=== PATIENT | female | born 1975 | race Caucasian/White ===

== ENCOUNTER 2022-05-31 14:58 | Emergency (ER) | payer BC, SELFPAY ==
[2022-05-31] VITALS (10 sets, daily range): BP systolic 133–152; BP diastolic 79–84; PULSE 95–105; RESP 16; TEMP 37; O2SAT 97–100; BMI 37.5
--- NOTE | 2022-05-31 15:30 | CRLHL7_ITS ---
For Patients: As a result of the Cures Act, medical imaging exams and procedure reports are released immediately into your electronic medical record. You may view this report before your referring provider. If you have questions, please contact your health care provider. INDICATION: Chest pain. TECHNIQUE: Chest 2 views. COMPARISON: 05/27/2021. FINDINGS: Cardiovascular and mediastinum: Heart size and vasculature are normal in caliber and appearance. Lungs and pleural spaces: Lungs are clear. No sign of infiltrate or mass. No sign of pleural effusion. No pneumothorax. Bones and soft tissues: No significant findings. IMPRESSION: No acute findings and no significant changes from the prior exam. Dictated by Rd Christine MD @ 05/31/2022 3:58:56 PM (Electronically Signed)
--- NOTE | 2022-05-31 15:35 | ED.GENADULT ---
HPI - General Adult General Chief complaint: Chest Pain Stated complaint: Chest pain, lightheaded and dizzy Time Seen by Provider: 05/31/22 15:00 Source: patient and family Mode of arrival: ambulatory Limitations: no limitations History of Present Illness HPI narrative: 47-year-old female with no significant prior cardiac history presents to the emergency department for evaluation of chest pain that started approximately 10:00 a.m. this morning. It started as a dull ache in the very left lateral chest radiating a bit into the left throat area. It has been persistent, not worsening, not waxing and waning, constant. Achy in nature. She initially thought that this could be a sign of an allergic reaction she reports multiple allergies. She tried taking some Benadryl with no significant improvement in her symptoms. There was no shortness of breath, no palpitations. She also reports what sounds like a history of a previous arrhythmia but some teen years ago when she was . It sounds like she was put on some atenolol and had side effects from it and later discontinued. She is no longer on medication for this. She describes episodes where if she avoids artificial sugars and also performs what sound like vagal maneuvers that she can stop her episodes. The story sounds consistent with a possible history of SVT but when I bring this up, she cannot confirm the diagnosis. Nonetheless she has not had any significant symptoms with it recently. She knows of no family history of significant early coronary artery disease. She herself has never had a stress test. It sounds like she did have an echo but more than 15 years ago may have shown enlarged heart at the time but again she was at that time. It does not sound as though there was an indication to perform follow-up studies. She has not tried any other treatments to help with her symptoms. No GI symptoms, nausea, vomiting. She also endorses some lightheadedness style dizziness. She denies any vertigo or neurological changes. She feels like her left hand is colder than her right hand but is uncertain what to relate this to. There is no weakness in the hand or arms. No other neurological changes like vertigo, headache, vision changes, speech changes, confusion, lower extremity weakness or feeling off balance. No recent injury or trauma. She did have her levothyroxine dose increased 2 days ago. Past medical history she states is notable for wheat allergy, hypothyroidism and celiac disease. She reports that her only home medication is levothyroxine and vitamin-D. She says she also has an inhaler sounds like albuterol but has not recently used. Socially, she denies any alcohol, illicit drug or tobacco use. No pertinent travel. Family history sounds like father also has a history of possibly SVT by description but no premature coronary artery disease. ROS notable for the hand, chest symptoms as above on also the dizziness which is a lightheadedness type of dizziness. Otherwise denies times 12 systems Related Data Home Medications Medication Instructions Recorded Confirmed epinephrine 0.3 mg/0.3 mL IM ONCE 05/31/22 injection, auto-injector ergocalciferol (vitamin D2) 1,250 1,250 mcg PO 2XW 05/31/22 05/31/22 mcg (50,000 unit) capsule levothyroxine 125 mcg tablet 125 mcg PO DAILY 05/31/22 05/31/22 (Synthroid) Allergies Allergy/AdvReac Type Severity Reaction Status Date / Time metoclopramide [From Reglan] Allergy Severe Anaphylaxis Verified 05/31/22 15:15 Penicillins Allergy Severe other Verified 05/31/22 15:15 wheat Allergy Severe Anaphylaxis Verified 05/31/22 15:15 morphine Allergy Intermediate edema Verified 05/31/22 15:15 atenolol Allergy Unknown Verified 05/31/22 15:15 [facility] Social History Smoking Status: Never smoker How often do you have a drink containing alcohol: never How often do you have six or more drinks on one occasion: Never AUDIT-C Alcohol total score: 0 Non-prescribed substance use: denies use Exam Const: Vital Signs, click to edit/add: Vital Signs - 24 hr 05/31/22 15:03 05/31/22 15:16 05/31/22 15:18 Temperature 98.6 F Pulse Rate 96 96 Pulse Rate [Pulse Oximeter] 105 H Respiratory Rate 16 Blood Pressure 152/84 H Blood Pressure [Ri ght Upper Arm] 152/84 H Pulse Oximetry 97 98 98 Oxygen Delivery Me thod Room Air 05/31/22 15:31 05/31/22 15:45 05/31/22 16:00 Temperature Pulse Rate 102 H 99 95 Pulse Rate [Pulse Oximeter] Respiratory Rate Blood Pressure Blood Pressure [[facility] Upper Arm] Pulse Oximetry 97 98 97 Oxygen Delivery Me thod 05/31/22 16:01 Temperature Pulse Rate 101 H Pulse Rate [Pulse Oximeter] Respiratory Rate Blood Pressure 133/79 Blood Pressure [Ri t Upper Arm] Pulse Oximetry 98 Oxygen Delivery Me thod Documenting provider has reviewed patient's vital signs: yes Common normals: no apparent distress and alert General appearance: cooperative and well kempt Orientation/consciousness: Yes awake HENMT: Common normals: normocephalic Head and scalp: normocephalic Face and sinus: normal facial exam Mouth: oral and palatal mucosa normal Throat: posterior oropharynx normal Eye: Common normals: PERRL, EOMs intact bilaterally, conjunctivae normal, no scleral icterus and normal visual galvez by confrontation General eye: normal appearance of both eyes Conjunctiva: conjunctiva(e) normal Pupil: PERRL Neck & C-Spine: Common normals: full ROM and no lymphadenopathy Resp: Common normals: normal respiratory effort, no use of accessory muscles and clear to auscultation bilaterally Effort & inspection: able to speak in complete sentences Auscultation: clear to auscultation bilaterally Cardio: Common normals: regular rate, regular rhythm, S1 normal heart sound, S2 normal heart sound, no murmurs and peripheral pulses 2+ throughout Rate: regular rate Rhythm: regular rhythm Heart sounds: S1 normal and S2 normal Peripheral pulses: pulses 2+ throughout GI: Common normals: Normal to inspection, nondistended, normoactive bowel sounds present, soft to palpation, non-tender, no hepatosplenomegaly and no masses Palpation: soft and no hepatosplenomegaly Extremity: Common normals: no pedal edema Neuro: Sensorium/orientation: awake and alert Coordination/balance: tandem gait normal and does not sway with eyes open Speech: speech normal Gait (neuro): normal gait Motor exam: strength 5/5 throughout, no tremor noted and no movement abnormalities noted Coordination: Romberg test normal, tandem gait normal and does not sway with eyes open Psych: Appearance: grossly normal and well kempt Attitude: calm Activity/motor behavior: appropriate eye contact Mood and affect: euthymic mood Insight: insight good Judgement: judgment good Skin: Common normals: no rashes or lesions noted General skin exam: no rashes or lesions noted Course Vital Signs Vital signs: Initial Vital Signs Temperature 98.6 F 05/31/22 15:03 Temperature Source Temporal Artery Scan 05/31/22 15:03 Pulse Rate 105 H 05/31/22 15:03 Pulse Rhythm Regular 05/31/22 15:03 Pulse Strength 3+ Normal 05/31/22 15:03 Respiratory Rate 16 05/31/22 15:03 Blood Pressure 152/84 H 05/31/22 15:03 Blood Pressure Mean 106 05/31/22 15:03 Blood Pressure Position Semi-Fowlers 05/31/22 15:03 Pulse Oximetry 97 05/31/22 15:03 Oxygen Delivery Method Room Air 05/31/22 15:03 Vital Signs Temperature 98.6 F 05/31/22 15:03 Pulse Rate 105 H 05/31/22 15:03 Respiratory Rate 16 05/31/22 15:03 Blood Pressure 152/84 H 05/31/22 15:03 Pulse Oximetry 97 05/31/22 15:03 Oxygen Delivery Method Room Air 05/31/22 15:03 Temperature 98.6 F 05/31/22 15:03 Pulse Rate 101 H 05/31/22 16:01 Respiratory Rate 16 05/31/22 15:03 Blood Pressure 133/79 05/31/22 16:01 Pulse Oximetry 98 05/31/22 16:01 Oxygen Delivery Method Room Air 05/31/22 15:03 Medical Decision Making MDM Narrative Medical decision making narrative: My differential diagnosis. Was mildly tachycardic check-in. Would recommend chest x-ray, EKG, CBC, troponins and D-dimer. She declines swabs for COVID and influenza. No treatments for now, await findings. Update: Patient continues to have some mild discomfort, not severe. Vitals have stabilized. All labs, x-ray and EKG are reassuring. Offered Tylenol and/or ibuprofen, she declines stating that she can take these at home. I recommend her doing a trial of this. Discussed differential diagnosis including viral infections, possible side effects of her new higher dose of Synthroid. If she still symptomatic in a few weeks, she should talk to her primary care provider about rechecking her labs to determine if this is the proper dose for her. Alarm symptoms reviewed. Follow up with primary care provider if symptoms persist more than the next couple of days Lab Data Lab results reviewed: Yes I reviewed the patient's lab results Lab results narrative: All reassuring. Labs: Lab Results 05/31/22 Range/Units 15:51 WBC 8.49 (4.50-11.00) K/uL RBC 4.83 (4.00-5.20) m/uL Hgb 13.8 (12.0-16.0) gm/dL Hct 40.8 (33.0-51.0) % MCV 85 (80-100) fL MCH 29 (26-34) pg MCHC 34 (32-36) gm/dL RDW Coeff of Vinay 13.5 (11.5-15.5) % Plt Count 291 (140-440) K/uL Neut % (Auto) 74.7 H (42.0-72.0) % Lymph % (Auto) 17.0 L (20-44) % Hopkins % (Auto) 5.3 (0.0-11.0) % Eos % (Auto) 1.5 (0.0-7.0) % Baso % (Auto) 0.2 (0.0-3.0) % Neut # (Auto) 6.30 (1.7-7.0) K/uL Lymph # (Auto) 1.40 (0.90-2.90) K/uL Hopkins # (Auto) 0.40 (0.00-0.90) K/UL Eos # (Auto) 0.13 (0.00-0.50) K/uL Baso # (Auto) 0.02 (0.00-0.30) K/uL D-Dimer Quant (PE/DVT) < 0.27 (0.00-0.50) ug/ml Sodium 139 (135-149) mmol/L Potassium 4.2 (3.6-5.1) mmol/L Chloride 106 (96-114) mmol/L Carbon Dioxide 26 (20-32) mmol/L BUN 13 (5-24) mg/dL Creatinine 0.8 (0.5-1.5) mg/dL Estimated Creat Clear 77.39 Estimated GFR 91 ml/min Glucose 102 (60-115) mg/dL Calcium 9.5 (8.4-10.6) mg/dL Troponin I < 0.01 L (0.01-0.04) ng/mL C-Reactive Protein 0.6 (0.5-1.0) mg/dL NT-Pro-B Natriuret Pep 61 pg/mL POC Troponin I 0.00 L (0.01-0.04) ng/ml Imaging Data Chest x-ray: Attestation: I have reviewed the pertinent imaging results. My impression: Normal chest x-ray. Radiologist's impression: IMPRESSION: No acute findings and no significant changes from the prior exam. ECG Data Attestation: I personally reviewed and interpreted this ECG as follows: Prior ECG tracings: not available for review Interpretation: Normal sinus rhythm, rate of 96. Normal axis. No significant ST or T-wave abnormalities. Good R-wave progression overall. Discharge Plan Discharge Clinical Impression: Anterior chest wall pain Patient Disposition: Home w/ Parent or Adult Condition: Stable Instructions: Chest Pain (DC) Additional Instructions: Thankfully, there are no signs of any dangerous reasons for your chest pain today. As we discussed, this could be from a viral infection, something musculoskeletal or your body adjusting to the new dose of thyroid medicine. If you are still noticing a high heart rate after 4 weeks, I would ask your primary care provider to repeat your labs and potentially lower your dose. Most of the time, your body will naturally adjust with no complications. There are no signs of dangerous heart rhythm today. Your blood pressure has improved with simple rest. Your chest x-ray looks great. The blood work does not reveal any damage to the heart muscle or any signs of heart strain. Kidney function, electrolytes and inflammatory markers are all also normal. We also did a blood test to check for potential blood clots and this is also negative. This is very reassuring. I think that it is safe for you to use Tylenol and/or ibuprofen for your pain. If your symptoms persist, I would follow-up with primary care doctor. Any severe symptoms, please come back to the emergency department. Activity Level: No Restrictions Discharge Diet: Regular Prescriptions: No Action levothyroxine [Synthroid] 125 mcg tablet 125 mcg PO DAILY ergocalciferol (vitamin D2) 1,250 mcg (50,000 unit) capsule 1,250 mcg PO 2XW epinephrine 0.3 mg/0.3 mL auto-injector IM ONCE Follow Up/Referrals: Larisa Velarde PA-C [Primary Care Provider] - Stand Alone Forms: [employer] Info Instructions
--- NOTE | 2022-05-31 15:41 | ED.NURSE ---
Pt declined to be swabbed for covid/flu, stating, I don't have those. Mechanical Integrity Specialist explained to pt that MD ordered these tests due to the symptoms that the pt complained of; pt again declined to be tested for covid/flu. MD notified.
[2022-05-31 15:59] LABS: Basophils Absolute Auto 0.02 K/uL (0.00-0.30); Basophils Percent Auto 0.2 % (0.0-3.0); Eosinophils Absolute Auto 0.13 K/uL (0.00-0.50); Eosinophils Percent Auto 1.5 % (0.0-7.0); Hematocrit 40.8 % (33.0-51.0); Hemoglobin* 13.8 gm/dL (12.0-16.0); Immature Granulocytes Abs Auto 0.11 K/uL (0.00-0.30); Immature Granulocytes Pct Auto 1.3 %; Mean Corpuscular HGB Conc 34 gm/dL (32-36); Mean Corpuscular Hemoglobin 29 pg (26-34); Mean Corpuscular Volume 85 fL (80-100); Monocytes Percent Auto 5.3 % (0.0-11.0); Neutrophils Percent Auto 74.7 % (42.0-72.0); Platelet Count* 291 K/uL (140-440); RDW Coefficient of Variation % 13.5 % (11.5-15.5); Red Blood Count 4.83 m/uL (4.00-5.20); White Blood Count* 8.49 K/uL (4.50-11.00)
[2022-05-31 16:05] LABS: Slide Review Reflex No
[2022-05-31 16:12] LABS: Chloride* 106 mmol/L (96-114); Potassium* 4.2 mmol/L (3.6-5.1); Sodium* 139 mmol/L (135-149)
[2022-05-31 16:15] LABS: Blood Urea Nitrogen* 13 mg/dL (5-24); Carbon Dioxide* 26 mmol/L (20-32); Creatinine* 0.8 mg/dL (0.5-1.5); Est. Creatinine Clearance* 77.39; Estimated Glomerular Filt Rate 91 ml/min; Glucose* 102 mg/dL (60-115)
[2022-05-31 16:16] LABS: Calcium* 9.5 mg/dL (8.4-10.6)
[2022-05-31 16:17] LABS: D Dimer Quantitative* < 0.27 ug/ml (0.00-0.50)
[2022-05-31 16:18] LABS: C Reactive Protein* 0.6 mg/dL (0.5-1.0)
[2022-05-31 16:25] LABS: NT Pro B Type NatriureticPept* 61 pg/mL
[2022-05-31 16:33] LABS: Troponin I* < 0.01 ng/mL (0.01-0.04)
== END 2022-05-31 16:51 | disposition home or self-care (01) ==
PROVIDERS: Emergency Provider Family Medicine; PCP Physician Assistant Medical
DX: R07.9 Chest pain, unspecified (principal)
CPT/HCPCS: 36415; 71046; 80048; 83880; 84484; 85025; 85379; 86140; 87631; 93005; 99283; 99284

== ENCOUNTER 2023-01-07 09:45 | Emergency (ER) | payer BC, SELFPAY ==
[2023-01-07 09:50] VITALS: BP 114/55; PULSE 79; RESP 18; TEMP 36.4; O2SAT 99; BMI 36.8
--- NOTE | 2023-01-07 10:17 | CRLHL7_ITS ---
For Patients: As a result of the Century Cures Act, medical imaging exams and procedure reports are released immediately into your electronic medical record. You may view this report before your referring provider. If you have questions, please contact your health care provider. INDICATION: Right calf pain, bruise. TECHNIQUE: Ultrasound venous duplex lower right extremity. Compression venous exam was performed using farrell-scale, color Doppler, and spectral Doppler analysis. COMPARISON: None. FINDINGS: Deep veins: Sonographic imaging demonstrates the right common femoral, deep femoral, superficial femoral, popliteal, posterior tibial and the contralateral right common femoral veins to be fully compressible with normal color Doppler blood flow. Superficial veins: Greater saphenous vein is fully compressible. No popliteal cyst. IMPRESSION: Normal right lower extremity venous ultrasound, no sign of deep venous thrombosis. Dictated by Ramirez Ha MD @ 01/07/2023 11:05:16 AM (Electronically Signed)
--- NOTE | 2023-01-07 11:16 | ED_ITS ---
HPI - General Adult General Date Seen: 01/07/23 Chief complaint: Extremity Pain/Injury, Lower Stated complaint: blood clot? Time Seen by Provider: 01/07/23 09:47 Source: patient Mode of arrival: ambulatory Limitations: no limitations History of Present Illness HPI narrative: Patient is a 47-year-old female presenting for right leg pain. She states yesterday she notice small bruise on the medial aspect of her right calf. She then today started developing pain in her right calf it posterior right thigh. Denies ever having similar symptoms in the past. Has never had blood clots before. She was concerned she could have developed a blood clot. She is not currently on any blood thinners. Denies fevers, chills, weakness, numbness. No history of peripheral neuropathy. She does state her right foot feel strange. States he does not feel numb does not feel normal. Denies any other concerns at this time Related Data Home Medications Medication Instructions Recorded Confirmed epinephrine 0.3 mg/0.3 mL 0.3 mg IM ONCE PRN 05/31/22 01/07/23 injection, auto-injector ergocalciferol (vitamin D2) 1,250 1,250 mcg PO 2XW 05/31/22 01/07/23 mcg (50,000 unit) capsule levothyroxine 125 mcg tablet 125 mcg PO DAILY 05/31/22 12/16/22 (Synthroid) ipratropium 0.5 mg-albuterol 3 mg 3 ml inhalation QID 01/07/23 01/07/23 (2.5 mg base)/3 mL nebulization soln levothyroxine 137 mcg tablet 137 mcg PO DAILY 01/07/23 01/07/23 (Synthroid) prednisolone sodium phosphate 15 mg PO 01/07/23 mg/5 mL (3 mg/mL) oral solution Allergies Allergy/AdvReac Type Severity Reaction Status Date / Time metoclopramide [From Reglan] Allergy Severe Anaphylaxis Verified 01/07/23 09:58 Penicillins Allergy Severe other Verified 01/07/23 09:58 wheat Allergy Severe Anaphylaxis Verified 01/07/23 09:58 morphine Allergy Intermediate edema Verified 01/07/23 09:58 atenolol Allergy Unknown Verified 01/07/23 09:58 latex Allergy Intermediate extreme Uncoded 01/07/23 09:58 rash, hands swelling dust Allergy Mild sneeze, Uncoded 01/07/23 09:58 runny nose molds Allergy Mild sneeze, Uncoded 01/07/23 09:58 runny nose Review of Systems Status of ROS: Reports: 10 or more systems reviewed and unremarkable except as noted in History and below [facility] Social History Smoking Status: Never smoker How often do you have a drink containing alcohol: never How often do you have six or more drinks on one occasion: Never AUDIT-C Alcohol total score: 0 Non-prescribed substance use: denies use Exam Narrative: Exam Narrative: Const: Well-nourished, Well-developed, in mild distress Eyes: PERRL, no conjunctival injection, and symmetrical lids HENT: Atraumatic external nose and ears. Moist mucous membranes. Neck: Symmetric, trachea midline, No thyromegaly. CVS: RRR, No murmurs or gallops. Peripheral pulses 2+ and equal in all extremities RESP: Unlabored respiratory effort. Clear to auscultation bilaterally. GI: Nontender/Nondistended, No rebound or guarding. MSK:Extremities w/o deformity, Normal Active ROM. No tenderness noted to the calf or posterior thigh Skin: Warm, Dry. Small 1 cm sized bruise to the medial right thigh Neuro: Normal Muscle tone, No focal neurological deficits. Psych: Awake, Alert, & Oriented x3. Appropriate mood and affect. Const: Vital Signs, click to edit/add: Vital Signs - 24 hr 01/07/23 09:50 Temperature 97.5 F L Pulse Rate [Pulse Oximeter] 79 Respiratory Rate 18 Blood Pressure [Ri ght Upper Arm] 114/55 L Pulse Oximetry 99 Oxygen Delivery Me thod Room Air Course Vital Signs Vital signs: Initial Vital Signs Temperature 97.5 F L 01/07/23 09:50 Temperature Source Temporal Artery Scan 01/07/23 09:50 Pulse Rate 79 01/07/23 09:50 Respiratory Rate 18 01/07/23 09:50 Blood Pressure 114/55 L 01/07/23 09:50 Blood Pressure Mean 74 01/07/23 09:50 Blood Pressure Position Sitting 01/07/23 09:50 Pulse Oximetry 99 01/07/23 09:50 Oxygen Delivery Method Room Air 01/07/23 09:50 Vital Signs Temperature 97.5 F L 01/07/23 09:50 Pulse Rate 79 01/07/23 09:50 Respiratory Rate 18 01/07/23 09:50 Blood Pressure 114/55 L 01/07/23 09:50 Pulse Oximetry 99 01/07/23 09:50 Oxygen Delivery Method Room Air 01/07/23 09:50 Temperature 97.5 F L 01/07/23 09:50 Pulse Rate 79 01/07/23 09:50 Respiratory Rate 18 01/07/23 09:50 Blood Pressure 114/55 L 01/07/23 09:50 Pulse Oximetry 99 01/07/23 09:50 Oxygen Delivery Method Room Air 01/07/23 09:50 Medical Decision Making MDM Narrative Medical decision making narrative: Patient is a 47-year-old female presenting for right leg pain. Symptoms started yesterday got worse today. She does have a very small contusion appearing area. We will do an ultrasound to make sure is not a blood clot considering there is pain in the calf and posterior thigh. This did return showing no acute abnormalities. She states she has not remember hitting her leg on anything so does not know what the bruises from. Denies any other pain. She does state her right foot does not feel normal but it is not painful. She is able move her toes without issue. Normal sensation in the foot. At this time I cannot definitively say what is causing the pain but it is not a blood clot. She will be discharged home again follow-up with her primary care provider symptoms are not improving. She agrees with this plan Imaging Data Right lower extremity DVT ultrasound: Radiologist's impression: INDICATION: Right calf pain, bruise. TECHNIQUE: Ultrasound venous duplex lower right extremity. Compression venous exam was performed using farrell-scale, color Doppler, and spectral Doppler analysis. COMPARISON: None. FINDINGS: Deep veins: Sonographic imaging demonstrates the right common femoral, deep femoral, superficial femoral, popliteal, posterior tibial and the contralateral right common femoral veins to be fully compressible with normal color Doppler blood flow. Superficial veins: Greater saphenous vein is fully compressible. No popliteal cyst. IMPRESSION: Normal right lower extremity venous ultrasound, no sign of deep venous thrombosis. Dictated by Ramirez Ha MD @ 01/07/2023 11:05:16 AM Discharge Plan Discharge Clinical Impression: Leg pain, right Patient Disposition: Home, Self-Care Condition: Stable Instructions: Leg Pain (ED) Additional Instructions: Ultrasound shows no signs of a blood clot. Unsure what is causing your symptoms at this time but if they continue you can follow-up with the primary care provider. Prescriptions: No Action levothyroxine [Synthroid] 125 mcg tablet 125 mcg PO DAILY ergocalciferol (vitamin D2) 1,250 mcg (50,000 unit) capsule 1,250 mcg PO 2XW epinephrine 0.3 mg/0.3 mL auto-injector 0.3 mg IM ONCE PRN levothyroxine [Synthroid] 137 mcg tablet 137 mcg PO DAILY ipratropium-albuterol 0.5 mg-3 mg(2.5 mg base)/3 mL solution for nebulization 3 ml INHALATION QID prednisolone sodium phosphate 15 mg/5 mL (3 mg/mL) solution PO Follow Up/Referrals: Larisa Velarde PA-C [Primary Care Provider] - Stand Alone Forms: [employer] Info Instructions
== END 2023-01-07 11:36 | disposition home or self-care (01) ==
PROVIDERS: Emergency Provider Student in an Organized Health Care Education/Training Program; PCP Physician Assistant Medical
DX: M79.604 Pain in right leg (principal)
CPT/HCPCS: 93971; 99283

== ENCOUNTER 2023-11-12 15:01 | Outpatient (CLI) | payer BC, SELFPAY | END 2023-11-12 15:02 | disposition home or self-care (01) | LOC: AMB 11-14 10:42 | PROVIDERS: PCP Physician Assistant Medical; Visit Provider Emergency Medicine | DX: R07.89 Other chest pain (principal) | CPT/HCPCS: A0425; A0427 ==

== ENCOUNTER 2023-11-12 15:34 | Emergency (ER) | payer BC, SELFPAY ==
[2023-11-12 15:40] VITALS: BP 137/92; PULSE 94; RESP 18; TEMP 36.9; O2SAT 98; BMI 38.6
--- NOTE | 2023-11-12 16:03 | CRLHL7_ITS ---
For Patients: As a result of the Cures Act, medical imaging exams and procedure reports are released immediately into your electronic medical record. You may view this report before your referring provider. If you have questions, please contact your health care provider. INDICATION: : CHEST PAIN COMPARISON: Chest radiograph on December 16, 2022 and multiple prior exams TECHNIQUE: Two view(s) of the chest FINDINGS: The cardiomediastinal silhouette and pulmonary vasculature are within normal limits in appearance. There is no focal airspace consolidation, pleural effusion, or pneumothorax. No displaced fractures. IMPRESSION: No acute cardiopulmonary process. Dictated by Juan Luis Gomez MD @ 11/12/2023 5:48:11 PM (Electronically Signed)
--- NOTE | 2023-11-12 16:11 | ED.CHESTPAIN ---
HPI - Chest Pain General Date Seen: 11/12/23 Chief Complaint: Chest Pain Stated Complaint: Anaphylaxis Time Seen by Provider: 11/12/23 15:47 Source: patient Mode of arrival: EMS Limitations: no limitations History of Present Illness HPI narrative: Patient is a 48-year-old female presenting to the emergency department for sharp chest pain and shaking. She states roughly starting about noon today she started to shake uncontrollably and it was pretty consistent up until EMS arrived. She was also having intermittent episodes of sharp chest pain radiating up to her left side of her neck and left shoulder. Denies symptoms like this before. She is given 50 mg of Benadryl by EMS. Is currently having very mild doll chest discomfort but states is much improved. No longer feeling lightheaded. States she feels her legs are weak and hard to walk. Denies fevers, chills, shortness of breath, headache, dizziness, abdominal pain, nausea, diarrhea, constipation. Does states she started using the metronidazole gel last night was observed as causing her symptoms. Considering was long symptoms were occurring she called the triage nurse who referred her to the emergency department. States she also feels like her hands have a tingling sensation. She is no longer shaking now but states ?I feel like I am shaking inside.? Patient believes she is having and flexes reaction to metronidazole. Does not have a rash Related Data Home Medications ?Medication ?Instructions ?Recorded ?Confirmed epinephrine 0.3 mg/0.3 mL 0.3 mg IM ONCE PRN 05/31/22 01/07/23 injection, auto-injector ergocalciferol (vitamin D2) 1,250 1,250 mcg PO 2XW 05/31/22 01/07/23 mcg (50,000 unit) capsule levothyroxine 125 mcg tablet 125 mcg PO DAILY 05/31/22 12/16/22 (Synthroid) ipratropium 0.5 mg-albuterol 3 mg 3 ml inhalation QID 01/07/23 01/07/23 (2.5 mg base)/3 mL nebulization soln levothyroxine 137 mcg tablet 137 mcg PO DAILY 01/07/23 01/07/23 (Synthroid) prednisolone sodium phosphate 15 mg PO 01/07/23 mg/5 mL (3 mg/mL) oral solution Previous Rx's ?Medication ?Instructions ?Recorded prednisone 20 mg tablet 40 mg (2 x 20 mg) PO DAILY #8 tabs 11/12/23 Allergies Allergy/AdvReac Type Severity Reaction Status Date / Time metoclopramide [From Reglan] Allergy Severe Anaphylaxis Verified 01/07/23 09:58 Penicillins Allergy Severe other Verified 01/07/23 09:58 wheat Allergy Severe Anaphylaxis Verified 01/07/23 09:58 morphine Allergy Intermediate edema Verified 01/07/23 09:58 atenolol Allergy Unknown Verified 01/07/23 09:58 clindamycin Allergy Redness of Verified 06/30/23 12:03 Skin latex Allergy Intermediate extreme Uncoded 01/07/23 09:58 rash, hands swelling dust Allergy Mild sneeze, Uncoded 01/07/23 09:58 runny nose molds Allergy Mild sneeze, Uncoded 01/07/23 09:58 runny nose Review of Systems Status of ROS Reports: 10 or more systems reviewed and unremarkable except as noted in History and below [facility] Social History Smoking Status: Never smoker Do you use any of these nicotine containing products: None How often do you have a drink containing alcohol: never How often do you have six or more drinks on one occasion: Never AUDIT-C Alcohol total score: 0 Non-prescribed substance use: denies use service: No Exam Narrative Exam Narrative: Const: Well-nourished, Well-developed, in mild distress Eyes: PERRL, no conjunctival injection, and symmetrical lids HENT: Atraumatic external nose and ears. Moist mucous membranes. Neck: Symmetric, trachea midline, No thyromegaly. CVS: RRR, No murmurs or gallops. Peripheral pulses 2+ and equal in all extremities RESP: Unlabored respiratory effort. Clear to auscultation bilaterally. GI: Nontender/Nondistended, No rebound or guarding. MSK:Extremities w/o deformity, Normal Active ROM Skin: Warm, Dry. No rashes or lesions. Neuro: Normal Muscle tone, No focal neurological deficits. Psych: Awake, Alert, & Oriented x3. Appropriate mood and affect. Const Vital Signs, click to edit/add: Vital Signs - 24 hr 11/12/23 15:40 11/12/23 17:14 11/12/23 17:15 Temperature 98.4 F Pulse Rate 99 94 Pulse Rate [Right Pulse Oximeter] 94 Respiratory Rate 18 Blood Pressure Blood Pressure [Right Upper Arm] 137/92 H Pulse Oximetry 98 99 98 Oxygen Delivery Method Room Air 11/12/23 17:35 11/12/23 19:39 Temperature 98.7 F Pulse Rate 94 Pulse Rate [Right Pulse Oximeter] Respiratory Rate Blood Pressure 132/78 Blood Pressure [Right Upper Arm] Pulse Oximetry 98 Oxygen Delivery Method Course Vital Signs Vital signs: Initial Vital Signs Temperature 98.4 F 11/12/23 15:40 Temperature Source Temporal Artery Scan 11/12/23 15:40 Pulse Rate 94 11/12/23 15:40 Respiratory Rate 18 11/12/23 15:40 Blood Pressure 137/92 H 11/12/23 15:40 Blood Pressure Mean 107 H 11/12/23 15:40 Blood Pressure Position Sitting 11/12/23 15:40 Pulse Oximetry 98 11/12/23 15:40 Oxygen Delivery Method Room Air 11/12/23 15:40 Vital Signs Temperature 98.4 F 11/12/23 15:40 Pulse Rate 94 11/12/23 15:40 Respiratory Rate 18 11/12/23 15:40 Blood Pressure 137/92 H 11/12/23 15:40 Pulse Oximetry 98 11/12/23 15:40 Oxygen Delivery Method Room Air 11/12/23 15:40 Temperature 98.4 F 11/12/23 15:40 Pulse Rate 94 11/12/23 17:35 Respiratory Rate 18 11/12/23 15:40 Blood Pressure 137/92 H 11/12/23 15:40 Pulse Oximetry 98 11/12/23 17:35 Oxygen Delivery Method Room Air 11/12/23 15:40 Medications Administered Medications: Discontinued Medications Generic Name Dose Route Start Last Admin Trade Name Freq PRN Reason Stop Dose Admin Cetirizine HCl 10 mg 11/12/23 17:22 11/12/23 18:08 Cetirizine Hcl 10 Mg Tablet PO 11/12/23 17:23 Not Given ONCE ONE Diphenhydramine HCl 25 mg 11/12/23 18:05 11/12/23 18:09 Diphenhydramine 50 Mg/Ml Inj IVP 11/12/23 18:06 25 mg ONCE ONE Administration Famotidine 40 mg 11/12/23 17:48 11/12/23 18:08 Famotidine 20 Mg Tablet PO 11/12/23 17:49 Not Given ONCE ONE Lactated Ringer's 1,000 mls @ 1,000 mls/hr 11/12/23 16:03 11/12/23 16:12 Lactated Ringers 1000 Ml IV 11/12/23 17:02 1,000 mls/hr .Q1H ONE Administration Methylprednisolone Sodium Succinate 125 mg 11/12/23 17:22 11/12/23 17:40 Methylprednisolone Sod Succ 62.5 Mg/Ml (125) IVP 11/12/23 17:23 125 mg ONCE ONE Administration MDM - Chest Pain MDM Narrative Medical decision making narrative: Patient is a 48-year-old female presenting for chest pain and concern about anaphylaxis. This time her vital signs are stable and she is having no rash. I do not see signs of anaphylaxis at this time. She does states she is feeling better after the Benadryl. Will do a cardiac workup including CBC, BMP, EKG, troponin, magnesium. Will also do a chest x-ray. Concerned she is having no shortness of breath at this time PE seems unlikely. His complete her otherwise stable vital signs seems very unlikely she is having aortic dissection or aortic aneurysm rupture. Lab work returned showing no concerning abnormalities. EKG shows no concerning findings. I was called into the room because patient is concerning she is going back to having allergic reaction. She states she has hives on her neck but I do not notice any hives in my exam. She she is also stating she believes her lip is swollen but again does not appear any bigger than when I 1st saw her. She states her throat feels it she and she is concerned she is having an anaphylactic reaction. At this time I do not believe she has have anaphylaxis and her vitals continue stay within normal limits. I will try some Zyrtec and Solu-Medrol. She refuse the oral Zyrtec and Pepcid because she states this weakness in she is allergic to that. Was given another 25 mg of Benadryl her symptoms are all gone at this point. Seems to be related to allergic reaction or possible anxiety. Do not believe is ACS related. Is currently chest pain-free. Did do repeat troponin that was within normal limits. She will be discharged at this time. Lab Data Labs: Lab Results 11/12/23 11/12/23 Range/Units 16:19 19:14 WBC 6.56 (4.50-11.00) K/uL RBC 4.78 (4.00-5.20) m/uL Hgb 13.6 (12.0-16.0) gm/dL Hct 40.1 (33.0-51.0) % MCV 84 (80-100) fL MCH 29 (26-34) pg MCHC 34 (32-36) gm/dL RDW Coeff of Vinay 13.3 (11.5-15.5) % Plt Count 224 (140-440) K/uL Neut % (Auto) 68.0 (42.0-72.0) % Lymph % (Auto) 21.5 (20-44) % [place] % (Auto) 7.0 (0.0-11.0) % Eos % (Auto) 2.6 (0.0-7.0) % Baso % (Auto) 0.6 (0.0-3.0) % Neut # (Auto) 4.46 (1.7-7.0) K/uL Lymph # (Auto) 1.41 (0.90-2.90) K/uL [place] # (Auto) 0.50 (0.00-0.90) K/UL Eos # (Auto) 0.17 (0.00-0.50) K/uL Baso # (Auto) 0.04 (0.00-0.30) K/uL Abs Immat Gran (auto) 0.02 (0.00-0.30) K/uL Imm/Tot Granulo (auto) 0.3 % Sodium 139 (135-149) mmol/L Potassium 3.6 (3.6-5.1) mmol/L Chloride 106 (96-114) mmol/L Carbon Dioxide 24 (20-32) mmol/L Anion Gap 9 (7-15) mEq/L BUN 11 (5-24) mg/dL Creatinine 0.7 (0.5-1.5) mg/dL Estimated Creat Clear 87.48 Estimated GFR 106 ml/min Glucose 118 H (60-115) mg/dL Calcium 9.3 (8.4-10.6) mg/dL Magnesium 2.1 (1.5-2.6) mg/dL Troponin I < 0.01 L (0.01-0.04) ng/mL POC Troponin I 0.00 L (0.01-0.04) ng/ml ECG Data Attestation: I personally reviewed and interpreted this ECG as follows: Prior ECG tracings: available for review Interpretation: Normal sinus rhythm rate 64 beats per minute, normal intervals, normal axis, no ST or T-wave abnormality. Appears similar previous EKG on file Discharge Plan Discharge Clinical Impression: Allergic reaction Qualifiers: Encounter type: initial encounter Qualified Code(s): T78.40XA - Allergy, unspecified, initial encounter Patient Disposition: Home, Self-Care Condition: Improved Instructions: General Allergic Reaction (ED) Additional Instructions: Continue take Benadryl at home. Use the steroids as directed. Return to emergency department for new or worsening symptoms. Prescriptions: New prednisone 20 mg tablet 40 mg PO DAILY Qty: 8 0RF Rx Instructions: Start taking on 11/13/2023 No Action levothyroxine [Synthroid] 125 mcg tablet 125 mcg PO DAILY ergocalciferol (vitamin D2) 1,250 mcg (50,000 unit) capsule 1,250 mcg PO 2XW epinephrine 0.3 mg/0.3 mL auto-injector 0.3 mg IM ONCE PRN levothyroxine [Synthroid] 137 mcg tablet 137 mcg PO DAILY ipratropium-albuterol 0.5 mg-3 mg(2.5 mg base)/3 mL solution for nebulization 3 ml INHALATION QID prednisolone sodium phosphate 15 mg/5 mL (3 mg/mL) solution PO Follow Up/Referrals: Larisa Velarde PA-C [Primary Care Provider] - Stand Alone Forms: [facility] Info Instructions
[2023-11-12] MEDS: LACTATED RINGERS 1000 ML 1,000 ML IV (16:12)
--- NOTE | 2023-11-12 16:13 | ED.NURSE ---
Patient declined COVID testing
[2023-11-12 16:41] LABS: Basophils Absolute Auto 0.04 K/uL (0.00-0.30); Basophils Percent Auto 0.6 % (0.0-3.0); Eosinophils Absolute Auto 0.17 K/uL (0.00-0.50); Eosinophils Percent Auto 2.6 % (0.0-7.0); Hematocrit 40.1 % (33.0-51.0); Hemoglobin* 13.6 gm/dL (12.0-16.0); Immature Granulocytes Abs Auto 0.02 K/uL (0.00-0.30); Immature Granulocytes Pct Auto 0.3 %; Lymphocytes Absolute Auto 1.41 K/uL (0.90-2.90); Lymphocytes Percent Auto 21.5 % (20-44); Mean Corpuscular HGB Conc 34 gm/dL (32-36); Mean Corpuscular Hemoglobin 29 pg (26-34); Mean Corpuscular Volume 84 fL (80-100); Neutrophils Absolute Auto 4.46 K/uL (1.7-7.0); Platelet Count* 224 K/uL (140-440); RDW Coefficient of Variation % 13.3 % (11.5-15.5); Red Blood Count 4.78 m/uL (4.00-5.20); White Blood Count* 6.56 K/uL (4.50-11.00)
[2023-11-12 16:43] LABS: Slide Review Reflex No
[2023-11-12 16:47] LABS: Chloride* 106 mmol/L (96-114); Potassium* 3.6 mmol/L (3.6-5.1); Sodium* 139 mmol/L (135-149)
[2023-11-12 16:50] LABS: Anion Gap 9 mEq/L (7-15); Blood Urea Nitrogen* 11 mg/dL (5-24); Calcium* 9.3 mg/dL (8.4-10.6); Carbon Dioxide* 24 mmol/L (20-32); Creatinine* 0.7 mg/dL (0.5-1.5); Est. Creatinine Clearance* 87.48; Estimated Glomerular Filt Rate 106 ml/min; Glucose* 118 mg/dL (60-115)
[2023-11-12 16:51] LABS: Magnesium* 2.1 mg/dL (1.5-2.6)
[2023-11-12 17:11] LABS: Troponin I* < 0.01 ng/mL (0.01-0.04)
[2023-11-12 17:14] VITALS: PULSE 99; O2SAT 99
[2023-11-12 17:15] VITALS: PULSE 94; O2SAT 98
[2023-11-12 17:35] VITALS: PULSE 94; O2SAT 98
[2023-11-12] MEDS: METHYLPREDNISOLONE SOD SUCC 62.5 MG/ML (125) 125 MG IVP (17:40)
[2023-11-12] MEDS: diphenhydrAMINE 50 MG/ML inj 25 MG IVP (18:09)
[2023-11-12 19:39] VITALS: BP 132/78; TEMP 37.1
== END 2023-11-12 19:41 | disposition home or self-care (01) ==
PROVIDERS: Emergency Provider Student in an Organized Health Care Education/Training Program; PCP Physician Assistant Medical
DX: R07.9 Chest pain, unspecified (principal); T78.40XA Allergy, unspecified, initial encounter
CPT/HCPCS: 36415; 71046; 80048; 83735; 84484; 85025; 87631; 93005; 96374; 96375; 99283; 99284; J1200; J2919; J7120

== ENCOUNTER 2023-12-02 07:30 | Outpatient (RCR) | payer BC, SELFPAY | END 2024-03-31 23:59 | disposition home or self-care (01) | PROVIDERS: PCP Physician Assistant Medical; Visit Provider Physician Assistant Medical | DX: I80.9 Phlebitis and thrombophlebitis of unspecified site (principal); R53.1 Weakness; R60.9 Edema, unspecified; Z74.09 Other reduced mobility; Z51.89 Encounter for other specified aftercare | CPT/HCPCS: 97035; 97140; 97165 ==

== ENCOUNTER 2024-10-10 09:00 | Outpatient (RCR) | payer BC, SELFPAY | END 2025-01-24 15:39 | disposition home or self-care (01) | PROVIDERS: PCP Physician Assistant Medical; Visit Provider Physician Assistant Medical | DX: M62.838 Other muscle spasm (principal); M54.2 Cervicalgia; R51.9 Headache, unspecified; Z51.89 Encounter for other specified aftercare | CPT/HCPCS: 97110; 97140; 97161 ==